=== PATIENT | female | born 2000 | race Caucasian/White ===

== ENCOUNTER 2024-01-19 02:36 | Emergency (ER) | payer OTHER ==
[2024-01-19 02:52] VITALS: BP 136/66; O2SAT 98
--- NOTE | 2024-01-19 03:39 | ED Physician Documentation ---
History of Present Illness - Stated complaint Stated Complaint: L ARM PX - Chief complaint Chief Complaint: Ext Problem - History obtained from History obtained from: Patient - Additonal information Additional information: 23-year-old woman presents with Nexplanon site pain and tingling moving down the arm. It was placed today without incident. Denies fever, purulent discharge, streaking redness. PD PAST MEDICAL HISTORY - Past Medical History Past Medical History: No - Past Surgical History Past Surgical History: No - Present Medications Home Medications: Ambulatory Orders Medication Instructions Recorded Confirmed Ketorolac [Toradol] 10 mg PO Q6H PRN #20 tablet 01/19/24 - Allergies Allergies/Adverse Reactions: Allergies Allergy/AdvReac Type Severity Reaction Status Date / Time No Known Drug Allergies Allergy Verified 01/19/24 02:48 - Social History Does the pt smoke?: No Smoking Status: Never smoker PD ED PE NORMAL - Vitals Vital signs reviewed: Yes - General General: Alert and oriented X 3, No acute distress, Well developed/nourished - HEENT HEENT: Atraumatic, PERRL, EOMI - Derm Derm: Normal color, Warm and dry, Other (ecchymosis in posterior left arm with puncture site clean and hemostatic) - Extremities Extremities: Other (2+ radial pulse LUE. normal sensation and strength) Results - Vitals Vitals: Vital Signs - 24 hr 01/19/24 02:45 Temperature 37 C Heart Rate 80 Respiratory 16 Rate Blood Pressure 136/66 H O2 Saturation 98 Oxygen O2 Source Room air PD Medical Decision Making - ED course ED course: 23yF p/w nexplanon site pain and tingling s/p placement today. site looks intact without any signs of malfunction. normal sensation and movement of extremity. provided toradol with imporvement in pain. rx sent to pharmacy. plan to f/u with pcp. return precautions given. Departure - Departure Disposition: 01 Home, Self Care Clinical Impression: Nexplanon in place, Pain in extremity Condition: Stable Instructions: Etonogestrel implant Prescriptions: Ketorolac [Toradol] 10 mg PO Q6H PRN #20 tablet PRN Reason: Pain Comments: You were seen in the emergency department for pain and tingling at the site of your nexplanon implant. Prescription for pain medication was sent to [facility] in [place]. Please follow-up with your provider who placed the nexplanon and return to the emergency department if you have any new or worsening symptoms or other concerns.
[2024-01-19] MEDS: KETOROLAC 10 MG TABLET PO STA (03:41)
[2024-01-19] MEDS: KETOROLAC 30 MG/ML VIAL IM STA (03:56)
== END 2024-01-19 04:03 | disposition home or self-care (01) ==
LOC: ED 02:36
DX: M79.622 Pain in left upper arm (principal); Z96.89 Presence of other specified functional implants
CPT/HCPCS: 96372; 99283